=== PATIENT | female | born 1970 | race Caucasian/White ===

== ENCOUNTER → 2019-01-23 06:41 | Day surgery (SDC) | payer BC ==
[~2019-01-23 06:41] MED LIST: Acetaminophen IV 1GM/100ML * 1,000 MG/100 ML VIAL IVPB ONE; Acetaminophen IV 1GM/100ML * 100 ML ONE; Buffered Lidocaine 1% SYRIN* 1 ML/SYRINGE INTRADERM ONE; Bupivacaine 0.25% SDV PF* 10 ML VIAL INJ ONE; Cisatracurium* 2 MG/ML MDV 5 ML ONE; Dexamethasone IV* 4 MG/ML 1 ML (4 MG) ONE; DiMENhydriNATE IV* 50 MG/ML VIAL IV PUSH PRN; Famotidine IV* 10 MG/ML 2 ML (20 mg) IV ONE; Famotidine IV* 10 MG/ML 2 ML (20 mg) ONE; Lactated Ringers 1000 ML Bag* 1,000 ML IV SCH; Lidocaine 1% INJ* 10 MG/ML 30 ML SDV ONE; Lidocaine 2% PF * 5 ML VIAL ONE; Midazolam* 1 MG/ML 5 ML VIAL (5 MG) ONE; Naloxone* 0.4 MG/ML 1 ML VIAL IV PRN; Ondansetron INJ* 2 MG/ML VIAL IV PRN; Ondansetron INJ* 2 MG/ML VIAL ONE; Propofol* 10 MG/ML 20 ML BTL ONE; fentaNYL* 50 MCG/ML 2 ML VIAL (100 MCG VIAL) IV PRN; fentaNYL* 50 MCG/ML 2 ML VIAL (100 MCG VIAL) ONE
[2019-01-23 14:06] VITALS: BP 137/77
--- NOTE | 2019-01-23 16:20 | OP ---
CC: Brad Caro MD; CASSIDY Gallego * DATE OF OPERATION: 01/23/19 - [facility] DATE OF : 74 SERVICE: General Surgery. SURGEON: Idalia Rendon MD WREATH INSPECTOR: Dr. Althea Walotn. ANESTHESIOLOGIST: Dr. Prince Doherty. ANESTHESIA: General endotracheal anesthesia. PRE-OP DIAGNOSIS: Graves' disease. POST-OP DIAGNOSIS: Graves' disease. OPERATIVE PROCEDURE: Total thyroidectomy. INDICATIONS: Ms. 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 Therefore, she wished to undergo an elective total thyroidectomy. She understood the risks, benefits, and alternatives of the procedure and she wished to proceed. SPECIMEN: Total thyroid. ESTIMATED BLOOD LOSS: Minimal, less than 10 cc. DESCRIPTION OF PROCEDURE: The patient was brought back to the operative room and placed on the operating table in the supine position. Sequential compression devices were placed in the bilateral lower extremities for DVT prophylaxis. No antibiotics were administered. General endotracheal anesthesia was induced. The patient had the electrodes for the nerve monitor placed. Her arms were tucked and her neck was positioned in the extended position and a time-out was performed verifying the patient's name, MR number, and the procedure to be performed and then local anesthesia consisting of 0.25% Marcaine and 1% lidocaine was then infiltrated into the midline of the neck. Next, the neck was prepped and draped in normal sterile fashion and then a second time-out was performed verifying again the patient's name, MR number, and the procedure to be performed. A transverse incision was made in a natural crease line approximately 2 fingerbreadths above the sternal notch. The skin was divided down to the subcutaneous tissue. The platysma was divided and then the inferior and superior subplatysmal flaps were then developed. Next, the median raphe between strap muscles were identified and then divided all the way down to the isthmus of the thyroid. Once this was done, a pyramidal lobe was identified and this was divided at its superior extent. Next, a sub-thyroidal tunnel was made just below the thyroid and above the trachea. This was carried down onto the lower aspect of the isthmus and then next the isthmus inferiorly was lifted up and then the grady veins were divided. The sub- thyroidal tunnel was met inferiorly and then the right thyroid lobe was divided off the midline and retracted laterally. Next, the medial attachments to the right thyroid lobe to the trachea were divided using LigaSure. The space of Noonan was then developed and once this was done, the right strap muscles were then off the thyroid lobe and then the lateral space was developed. The middle thyroid vein was identified and divided using LigaSure. Next, attention was turned towards the right upper pole vessels. They were isolated and divided using a combination of LigaSure and 2-0 silk ties. Once this was done, the right thyroid lobe was lifted up and out the neck. The right recurrent laryngeal nerve was identified and its entire course was traced out and it was seen entering the cricothyroid muscle. It was also identified using the nerve monitor. The right upper parathyroid was also identified and the right lower parathyroid was thought to be seen in thyrothymic ligament. Once this was verified, then the right thyroid lobe was able to be taken off the trachea with great care to avoid the recurrent laryngeal nerve. Once this was done, it was examined for parathyroids, none were identified. The upper pole was marked and was carried off the table as specimen. Attention was turned towards the left side and in a similar fashion, the medial attachments to the left thyroid lobe were divided off using LigaSure. The space of Noonan was developed and then the strap muscles were from the left thyroid lobe. The middle thyroid vein was identified and divided and then the left upper and lower parathyroids were easily identified. The lower parathyroid on the left side was attached to the lower poles of thyroid and it was then divided off carefully saving on its pedicle. The upper parathyroid was also identified at the upper pole of the thyroid and it was carefully from the thyroid lobe and saved on its pedicle. The left recurrent laryngeal nerve was identified and dissected out and preserved. Its identity was also verified using the nerve monitor device. Prior to this, the superior vessels were taken down using a combination of LigaSure and 2-0 silk ties. After the recurrent laryngeal nerve was identified and its course was traced out , the thyroid lobe was able to be taken off safely from the trachea using LigaSure. It was taken off the table and examined for parathyroids; none were identified. The upper pole was marked and it was carried out off the table as a specimen. Next, attention was turned towards obtaining hemostasis in the lateral neck bilaterally. Once this was done, Tisseel was placed in both of the lateral neck spaces and the strap muscles were reapproximated using interrupted 4-0 Vicryl sutures and then the platysma was reapproximated using 4- 0 Vicryl sutures. There was no evidence of bleeding in the subcutaneous space. The skin was closed using a running 4-0 Prolene suture and sterile dressings were placed and the patient's anesthesia was reversed and she was taken to the PACU in stable condition. At the end of the case, all counts were correct and I was present during the entirety of the case. [id number] #: [id number] JOANNE
== END | disposition home or self-care (01) ==
LOC: OR 06:41
PROVIDERS: ATTEND Surgery
DX: C73 Malignant neoplasm of thyroid gland (principal); E05.90 Thyrotoxicosis, unspecified without thyrotoxic crisis or storm; I10 Essential (primary) hypertension; G89.29 Other chronic pain; H44.89 Other disorders of globe
CPT/HCPCS: 81025; 88307; C1776; J1100; J2250; J2405; J2704; J3010; J3490

== ENCOUNTER 2023-05-09 06:24 | Observation (INO) ==
[2023-05-09 07:19] LABS: ABS Eosinophils 0.1 10^3/uL (0.0-0.5); ABS Monocytes 0.4 10^3/uL (0.0-0.9); ABS Neutrophils 3.4 10^3/uL (1.5-7.6); ABS Nucleated RBC 0.01 10^3/ul; Eosinophil % 1.5 %; Hematocrit 39.3 % (35-45); Hemoglobin 13.9 g/dL (11.5-14.3); Lymphocyte % 33.1 %; Mean Corpuscular Hemoglobin 29.1 pg (27-33); Mean Corpuscular Hgb Conc 35.4 g/dL (31-36); Mean Corpuscular Volume 82.1 fL (80-97); Mean Platelet Volume 7.1 fL (7.5-11.2); Nucleated Red Blood Cells % 0.2 /100 WBC (0.0-0.4); Platelet Count 244 10^3/uL (150-450); Red Blood Count 4.79 10^6/uL (3.63-4.92); Red Cell Distribution Width 13.7 % (12-17); White Blood Count 5.9 10^3/uL (3.8-11.8)
[2023-05-09 07:25] LABS: Activated Partial Thrombo Time 31.2 seconds (26.0-38.0); INR 1.04 (0.83-1.13)
[2023-05-09] MEDS ORDERED: oxyCODONE SR 10 mg TAB ONE (07:29)
[2023-05-09] MEDS ORDERED: Ondansetron 4 mg VIAL 2 MG/ML 2 ml VIAL ONE (07:29)
[2023-05-09] MEDS ORDERED: Scopolamine 1 mg/72hr PATCH ONE (07:30)
[2023-05-09 07:34] LABS: Calcium 9.1 mg/dL (8.6-10.3); Creatinine, Serum 0.7 mg/dL (0.51-0.95); Potassium 3.8 mmol/L (3.5-5.0); eGFR CKD-EPI 104.6 (>60)
[2023-05-09 07:41] LABS: HCG Pregnancy 0.78 mIU/mL
[2023-05-09] MEDS ORDERED: Clindamycin 900 MG/50 **NS BAG 900 MG/50 ML BAG IV ONE (08:00)
[2023-05-09] MEDS ORDERED: Lidocaine 1% MPF 5 ML VIAL ONE (08:30)
[2023-05-09] MEDS ORDERED: Gelfoam 12-7 ADSORBABL SPONGE ONE (08:30)
[2023-05-09] MEDS ORDERED: Gelfoam Sponge SIZE 100 SPONGE ONE (08:31)
[2023-05-09] MEDS ORDERED: Iohexol 350 (CONTRAST) 100 ML PAK IV ONE (08:31)
[2023-05-09] MEDS ORDERED: Heparin 2 UNITS/ML IVPREMIX 3,000 UNIT/1,500 ML BAG IV ONE (08:31)
[2023-05-09] MEDS ORDERED: nitroGLYCERIN DRIP 25,000 MCG/250 ML BTL ONE (08:34)
[2023-05-09] MEDS ORDERED: fentaNYL 100 mcg/2 ml 50 MCG/ML VIAL ONE (08:34)
[2023-05-09] MEDS ORDERED: Midazolam 5 mg/5 ml VIAL 1 mg/ml 5 ml VIAL (5 mg) ONE (08:34)
[2023-05-09] MEDS ORDERED: Naloxone 0.4 mg VIAL 0.4 mg/ml 1 ml VIAL IV PUSH PRN ×2 (09:35→10:22)
[2023-05-09] MEDS ORDERED: HYDROmorphone 0.5 MG/0.5 ML SYRINGE ONE ×2 (09:40→09:53)
[2023-05-09] MEDS ORDERED: HYDROmorphone PCA 20 MG/20 ML PCA.SYRING PCA SCH (10:00)
[2023-05-09] MEDS ORDERED: Midazolam 10 mg/10 ml VIAL 1 mg/ml 10 ml VIAL (10 mg) IV SLOW PU ONE (10:22)
[2023-05-09] MEDS ORDERED: Flumazenil 0.5 mg/5 ml 0.1 MG/ML 5 ml VIAL IV PRN (10:22)
[2023-05-09] MEDS ORDERED: fentaNYL 100 mcg/2 ml 50 MCG/ML VIAL IV SLOW PU ONE (10:22)
[2023-05-09] MEDS: NS 0.9% 1000 ml BAG 1,000 ML IV SCH ×2 (12:48→20:49)
[2023-05-09] MEDS: Ondansetron 4 mg VIAL 2 MG/ML 2 ml VIAL IV SCH ×2 (15:09→20:53)
[2023-05-10] MEDS: Ondansetron 4 mg VIAL 2 MG/ML 2 ml VIAL IV SCH ×2 (03:29→09:04)
[2023-05-10] MEDS: NS 0.9% 1000 ml BAG 1,000 ML IV SCH (04:59)
[2023-05-10 07:41] LABS: Hematocrit 35.4 % (35-45); Hemoglobin 12.6 g/dL (11.5-14.3); Mean Corpuscular Hemoglobin 29.1 pg (27-33); Mean Corpuscular Hgb Conc 35.6 g/dL (31-36); Mean Corpuscular Volume 81.6 fL (80-97); Mean Platelet Volume 6.8 fL (7.5-11.2); Platelet Count 244 10^3/uL (150-450); Red Blood Count 4.34 10^6/uL (3.63-4.92); Red Cell Distribution Width 13.8 % (12-17); White Blood Count 10.4 10^3/uL (3.8-11.8)
[2023-05-10] MEDS ORDERED: HYDROcodone/ACETAMIN 5/325 mg TAB PO PRN (09:58)
[2023-05-10 10:15] VITALS: BP 145/86
[2023-05-10] MEDS ORDERED: Ketorolac 10 mg TAB (NF) PO SCH (15:00)
== END 2023-05-10 11:30 | disposition home or self-care (01) ==
LOC: CHICATH 06:24 → SSU 06:24 → SUATTDRO 12:28
PROVIDERS: ADMIT Internal Medicine; ATTEND Internal Medicine
PROC: ANG.UFE (2023-05-09 08:10)